=== PATIENT | male | born 1965 | race Caucasian/White ===

== ENCOUNTER 2017-09-23 04:59 | Inpatient (IN) | payer OTHER ==
[~2017-09-23] VITALS: Ht 175.3 cm; Wt 92.6 kg
[2017-09-23] VITALS (16 sets, daily range): BP systolic 122–156; BP diastolic 70–92
--- NOTE | ~2017-09-23 | EKG ---
[address] [address] ELECTROCARDIOGRAM REPORT Name: EDGARD KHAN Room #: 215- ADM IN M.R.#: [id number] Admission: 09/23/17 Attend Phys: Uvaldo Auguste Discharge: Date of : 61 Report #: [id number] THIS REPORT FOR: //name// [facility] Test Date: 2017-09-24 Test Time: 06:12:14 Pat Name: EDGARD KHAN Department: Room: 215 P Gender: M Systems Specialist: MICHAEL : 1965 Requested By: Uvaldo Auguste Order Number: [id number] MD: Darío Vázquez Measurements Intervals [place] Rate: 73 P: 78 OR: 170 QRS: 33 QRSD: 122 T: -60 QT: 451 QTc: 497 Interpretive Statements Sinus rhythm Inferior infarct, recent Compared to ECG 09/23/2017 05:01:[address] elevation is less prominent Electronically Signed On 09-24-2017 9:55:26 LICENSED MORTICIAN by Darío Vázquez [email or web address] <ELECTRONICALLY SIGNED> By: Darío Vázquez MD, [facility] 09/24/1755 1 1 Darío Vázquez MD, [facility] /EPI
--- NOTE | ~2017-09-23 | EKG ---
[address] [address] ELECTROCARDIOGRAM REPORT Name: EDGARD KHAN Room #: 215-P ADM IN M.R.#: [id number] Admission: 09/23/17 Attend Phys: Uvaldo Auguste Discharge: Date of : 61 Report #: [id number] THIS REPORT FOR: //name// [facility] ED Test Date: 2017-09-23 Test Time: 05:01:23 Pat Name: EDGARD KHAN Department: Room: [facility] Gender: M Jboss Developer: 99 : 1965 Requested By: Jenaro Correia Order Number: [id number] MD: Darío Vázquez Measurements Intervals [place] Rate: 77 P: 78 PA: 167 QRS: 88 QRSD: 100 T: 97 QT: 381 QTc: 432 Interpretive Statements Sinus rhythm Probable left atrial enlargement Inferior infarct, acute (RCA) No previous ECG available for comparison Electronically Signed On 09-23-2017 8:14:45 BOILER CONTROL ROOM OPERATOR by Darío Vázquez [email or web address] <ELECTRONICALLY SIGNED> By: Darío Vázquez MD, [facility] 09/23/17 0814 501 0 Darío Vázquez MD, [facility] /EPI
--- NOTE | ~2017-09-23 | 2DMMODE ---
[facility] [address] [facility] [place] [address] 2 D/M-MODE ECHOCARDIOGRAM Name: EDGARD KHAN Room #: 215-P ADM IN M.R.#: [id number] Admission: 09/23/17 Attend Phys: Uvaldo Tee Discharge: Date of : 61 Date of Service: 09/23/17 1033 Report #: [id number] THIS REPORT FOR: //name// APPROVED REPORT Study performed: 09/23/2017 09:28:25 EXAM: Comprehensive 2D, Doppler, and color-flow Echocardiogram Patient Location: Bedside Room #: 215 Status: routine BSA: 2.08 HR: 75 bpm BP: 150/78 mmHg Other Information Study Quality: Adequate Indications CAD Chest Pain Hypertension/HDD STEMI 2D Dimensions RVDd: 32.41 mm LVEF(%): 53.32 (>50%) IVSd: 10.90 (7-11mm) LVOT Diam: 21.69 (18-24mm) LVDd: 55.67 mm PWd: 11.16 (7-11mm) Ascending Ao: 28.16 (22-36mm) LVDs: 40.18 (25-40mm) Aortic Root: 29.14 mm IVC: 16.00 mm Dhillon's LVEF: 53.32 % Volumes Left Atrial Volume (Systole) Single Plane 4CH: 29.07 mL Single Plane 2CH: 55.12 mL LA ESV Index: 22.00 mL/m2 Aortic Valve AoV Peak Chon.: 1.30 m/s AO Peak Gr.: 6.77 mmHg LVOT Max P.19 mmHg LVOT Max V: 1.02 m/s JUDY Vmax: 2.90 cm2 Mitral Valve [facility] [place] [address] [place] [address] 2 D/M-MODE ECHOCARDIOGRAM Name: JUANBECKEDGARD KUO Melissa Room #: 215-P [facility] IN ..#: [id number] Admission: 09/23/17 Attend Phys: Uvaldo Tee Discharge: Date of : 61 Date of Service: 09/23/17 1033 Report #: [id number] E/A Ratio: 0.8 MV Decel. Time: 174.33 ms MV E Max Chon.: 0.70 m/s MV A Chon.: 0.90 m/s MV PHT: 50.56 ms IVRT: 138.41 ms Pulmonary Valve PV Peak Chon.: 0.71 m/s PV Peak Gr.: 1.99 mmHg Pulmonary Vein P Vein S: 0.37 m/s P Vein A: 0.26 m/s P Vein D: 0.25 m/s P Vein A Dur.: 115.3 msec P Vein S/D Ratio: 1.48 Left Ventricle The left ventricle is normal size. There is mild hypokinesis in the basal inferior wall. There is normal left ventricular wall thickness. The left ventricular systolic function is normal. The left ventricular ejection fraction is within the normal range. LVEF is 50-55%. Grade I - abnormal relaxation pattern. Right Ventricle The right ventricle is normal size. The right ventricular systolic function is normal. Atria The left atrium size is normal. The right atrium size is normal. Aortic Valve The aortic valve is normal in structure. No aortic regurgitation is present. There is no aortic valvular stenosis. Mitral Valve The mitral valve is normal in structure. Trace to mild mitral regurgitation. No evidence of mitral valve stenosis. Tricuspid Valve The tricuspid valve is normal in structure. There is no tricuspid valve regurgitation noted. Pulmonic Valve The pulmonary valve is normal in structure. There is no pulmonic valvular regurgitation. [address] [address] 2 D/M-MODE ECHOCARDIOGRAM Name: EDGARD KHAN Room #: 215-P [facility] IN [facility]#: [id number] Admission: 09/23/17 Attend Phys: Uvaldo Tee Discharge: Date of : 61 Date of Service: 09/23/17 1033 Report #: [id number] Great Vessels The aortic root is normal in size. IVC is normal in size and collapses >50% with inspiration. Pericardium There is no pericardial effusion. <Conclusion> The left ventricle is normal size. LVEF is 50-55%. There is mild hypokinesis in the basal inferior wall. The right ventricle is normal size. The right ventricular systolic function is normal. The aortic valve is normal in structure. The mitral valve is normal in structure. Trace to mild mitral regurgitation. The tricuspid valve is normal in structure. The pulmonary valve is normal in structure. There is no pericardial effusion. <ELECTRONICALLY SIGNED> By: Uvaldo Auguste MD 09/23/17 1033 1033 1033 Uvaldo Auguste MD /INF
--- NOTE | ~2017-09-23 | CATHLAB ---
[facility] [place] [address] INVASIVE PROCEDURE REPORT Name: ERINEDGARD Melissa Room #: 215-P ADM IN .R.#: [id number] Admission: 09/23/17 Attend Phys: Uvaldo Tee Discharge: Date of : 61 Date of Service: 09/23/17 1552 Report #: [id number] THIS REPORT FOR: //name// ADDENDUM APPROVED REPORT Patient Details Patient Status: ED Room #: The patient is a 52 year-old male Event Personnel Uvaldo Auguste Magisterial District Judge, Rochelle Garvey RTR Monitor, Hannah Henning CVT ScrubAlejandro Ariel RN advertisement distributor Performed Selective left and right coronary angiography, CECILIO Place w/wo Plasty Single RCA [id number] Indication Procedure Narrative The Right Groin^ was infiltrated with 1% Lidocaine subcutaneous anesthesia. A PINNACLE 6FR Sheath #[id number] sheath was inserted into the RFA^. Coronary angiography was performed using coronary diagnostic catheters. The right coronary system was accessed and visualized with a JR4 GUIDE catheter. The left coronary system was accessed and visualized with a JL4 catheter. Left ventricular/Aortic Valve gradient assessed via catheter pullback. The patient tolerated the procedure well and there were no complications associated with the procedure. Fluoro Time: 13.20 minutes Dose: 1280 mGy Contrast Type and Amount: Omnipaque 150 ml Coronary Angiography The patient's coronary anatomy is right dominant. Diagnostic Cath Left Main Normal origin moderate caliber bifurcates left anterior descending left circumflex free of high-grade disease LAD Small to moderate caliber type II vessel which tapers rapidly towards the apex terminating as a string size vessel. Luminal irregularities to mild irregularities are noted throughout its course [facility] [address] [place] [address] INVASIVE PROCEDURE REPORT Name: ERINEDGARD Melissa Room #: 215-P [facility] IN ..#: [id number] Admission: 09/23/17 Attend Phys: Uvaldo Tee Discharge: Date of : 61 Date of Service: 09/23/17 1552 Report #: [id number] without high grade flow limiting lesions. Diagonal 1 Small-caliber vessel without obstructive lesions present Circumflex Small-caliber vessel which has a proximal first marginal branch with a 50% proximal lesion. Does not appear to be flow-limiting. The vessel then continues on giving rise to numerous smaller caliber lateral and posterior lateral wall marginal branches with luminal irregularities OM1 Small-caliber vessel which has a focal area of narrowing which appears to be between 30 and 50% eccentric Ildefonso. Flow is not impaired through this region OM2 Small-caliber vessels with luminal irregularities noted OM3 Small-caliber vessel with luminal irregularity noted Right Coronary Small to moderate caliber vessel of normal origin which proceeds in the AV groove and is completely occluded at the acute margin. Distal circulation is seen via left to right collateral with a small caliber infero-posterior wall branches IVUS Findings Sprjasson OTW 2.5 x 25 #[id number] Hemodynamics The aortic pressure is 155/93 mmHg with a mean of 120 mmHg. PCI Technique A 0 .014 wire was then advanced into the distal right coronary artery and a 2.0 mm balloon was then utilized with numerous sequential inflations. He balloon was then exchanged for a 2.5 mm 30 mm balloon which was sequentially inflated throughout the proximal and proximal mid RCA. Subsequent to this a 2.5 mm x 30 mm CECILIO Medtronic stent was then positioned and inflow inflated to 9 maile. Then he balloon was then removed and a second 2.5 mm CECILIO Medtronic stent was then positioned proximal to that and deployed at 9 maile. Utilizing that second balloon which was taken distally the previously stented and the most recently stented stents were dilated to 12 maile without issues. Reperfusion was established with balloon dilatation and stenting. His remained electrically and hemodynamically stable throughout the entire procedure. Post stenting angiography demonstrated a small caliber posterior descending artery has a moderate proximal lesion. The distal circulation was swelling caliber with luminal irregularities but no high-grade lesions noted. The RCA proper had excellent flow along his tortuosity with apparently fully deployed stents. KATELYN flow of 3 was noted. [facility] [address] [place] [address] INVASIVE PROCEDURE REPORT Name: EDGARD KHAN Room #: 215-P [facility] IN ..#: [id number] Admission: 09/23/17 Attend Phys: Uvaldo Tee Discharge: Date of : 61 Date of Service: 09/23/17 1552 Report #: [id number] PCI Technique Lesion Percutaneous coronary intervention was performed on the mid right coronary artery. A LAUNCHER 6FR FR 4 #[id number] Guide Catheter was used to engage the RCA ostium. A Luge Wire .014 x 182CM #[id number] Interventional Guidewire was used to cross the lesion. BALLOON DILATION A Balloon catheter Sprinter OTW 2.0 x 15 #[id number] was inserted and inflated up to 10.00atm for 28seconds. Additional Inflation: 12.00atm for 12seconds. Additional Inflation: 12.00atm for 23seconds. BALLOON DILATION A Balloon catheter Sprinter OTW 2.5 x 25 #[id number] was inserted and inflated up to 9.00atm for 11seconds. Additional Inflation: 8.00atm for 65seconds. STENT DEPLOYMENT A drug-eluting stent RESOLUTE OTW 2.5 X 30 #[id number] was inserted and inflated up to 9.00atm for 17seconds. Additional Inflation: 8.00atm for 45seconds. Additional Inflation: 8.00atm for 38seconds. Stent Deployment A drug-eluting stent RESOLUTE OTW 2.5 X 26 #[id number] was inserted and inflated up to 12atm for 9seconds. Conclusion 1. Coronary artery disease severe single-vessel involving the right coronary artery with diminutive left coronary circulation 2. Successful percutaneous revascularization of a totally occluded right coronary artery with a 2.5 mm Medtronic CECILIO stent taken to 12 maile. A total of 45 mm of stent was deployed in the proximal and proximal mid RCA Recommendations Daily ASA with Plavix for at least one year Cardiac Risk Reduction Program Aggressive Medical Therapy Medications Administered Prasugrel <ELECTRONICALLY SIGNED> By: Uvaldo Auguste MD 09/23/17 155 51 51 Uvaldo Auguste MD /INF
[2017-09-23 05:16] LABS: HEMATOCRIT 49.6 % (42.0-52.0); HEMOGLOBIN 17.1 gm/dL (14.0-18.0); MCH 31.7 pg (26.0-34.0); MCHC 34.4 g/dL (28.0-37.0); RBC 5.39 mil/uL (4.50-6.00); RDW 14.8 % (10.5-14.5); WBC 11.7 thou/uL (4.0-11.0)
[2017-09-23] MEDS ORDERED: LISINOPRIL20 MG PO (05:20)
[2017-09-23] MEDS ORDERED: ALLOPURINOL 10100 M1 PO (05:20)
[2017-09-23] MEDS ORDERED: ATORVASTATIN CA40 MG PO (05:20)
[2017-09-23] MEDS ORDERED: ASPIR 8181 MG PO (05:21)
[2017-09-23 05:25] LABS: ANION GAP 14 mmol/L (7-16); BUN 17 mg/dL (7-18); CALCIUM 9.9 mg/dL (8.5-10.1); CHLORIDE 103 mmol/L (98-107); CO2 25 mmol/L (21-32); GLUCOSE 128 mg/dL (74-106); SODIUM 142 mmol/L (136-145)
[2017-09-23 05:34] LABS: TROPONIN-I < 0.04 ng/mL (<0.06)
[2017-09-24] VITALS: BP 120/77
[2017-09-24 00:05] VITALS: BP 120/77
[2017-09-24 03:30] VITALS: BP 110/75
[2017-09-24 03:49] LABS: HEMATOCRIT 42.6 % (42.0-52.0); HEMOGLOBIN 14.4 gm/dL (14.0-18.0); MCH 31.3 pg (26.0-34.0); MCHC 33.7 g/dL (28.0-37.0); MCV 92.7 fL (80.0-100.0); RBC 4.59 mil/uL (4.50-6.00); RDW 14.8 % (10.5-14.5); WBC 6.8 thou/uL (4.0-11.0)
[2017-09-24 04:00] LABS: CALCIUM 8.3 mg/dL (8.5-10.1); CREATININE 0.9 mg/dL (0.7-1.3); POTASSIUM 3.9 mmol/L (3.5-5.1)
[2017-09-24 07:30] VITALS: BP 131/79
[2017-09-24] MEDS ORDERED: TOPROL XL25 MG PO (10:37)
[2017-09-24] MEDS ORDERED: NITROGLYCERIN0.4 MG SUBLING (10:38)
[2017-09-24] MEDS ORDERED: BRILINTA90 MG PO (10:38)
[2017-09-24 11:15] VITALS: BP 121/79
== END 2017-09-24 12:00 | disposition home or self-care (01) | DRG 247 ==
LOC: ER 04:59 → CATH 04:59 → EROBS 05:46 → 2N 05:46 → ENTRNSPT 09-24 11:43 → EDTRNSPTSTS 09-24 11:46 → 2N 09-24 12:00
PROVIDERS: Emergency Medicine; Internal Medicine
DX: I21.19 ST elevation (STEMI) myocardial infarction involving other coronary artery of inferior wall (principal); I10 Essential (primary) hypertension; E78.00 Pure hypercholesterolemia, unspecified; M19.90 Unspecified osteoarthritis, unspecified site; M10.9 Gout, unspecified; Z79.82 Long term (current) use of aspirin; Z79.899 Other long term (current) drug therapy; Z82.49 Family history of ischemic heart disease and other diseases of the circulatory system
CPT/HCPCS: 10081

== ENCOUNTER 2019-12-27 12:22 | Emergency (ER) | payer BC, OTHER ==
[~2019-12-27] VITALS: Ht 175.3 cm; Wt 90.7 kg
[~2019-12-27 12:22] MED LIST: ALLOPURINOL 10100 M1 PO; ASPIR 8181 MG PO; ATORVASTATIN CA40 MG PO; BRILINTA90 MG PO; LISINOPRIL20 MG PO; NITROGLYCERIN0.4 MG SUBLING; TOPROL XL25 MG PO
[2019-12-27 13:07] LABS: ABSOLUTE NEUTROPHILS 5.6 thou/uL (1.4-8.2); BASOPHILS 0.7 % (0.0-2.0); EOSINOPHILS 0.2 % (0.0-3.0); HEMATOCRIT 47.2 % (42.0-52.0); HEMOGLOBIN 15.9 gm/dL (14.0-18.0); LYMPHOCYTES 7.6 % (24.0-44.0); MCH 31.4 pg (26.0-34.0); MCHC 33.7 g/dL (28.0-37.0); MCV 93.1 fL (80.0-100.0); MONOCYTES 11.2 % (1.0-8.0); PLATELET COUNT 184 thou/uL (150-400); POLYS 80.3 % (36.0-66.0); RBC 5.07 mil/uL (4.50-6.00); RDW 13.8 % (10.5-14.5)
[2019-12-27 13:10] LABS: APTT 25.7 Seconds (24.5-32.8); INR 1.1; PROTIME 11.4 Seconds (9.3-11.4)
[2019-12-27 13:13] LABS: ANION GAP 11 mmol/L (7-16); BUN 11 mg/dL (7-18); CALCIUM 9.5 mg/dL (8.5-10.1); CHLORIDE 99 mmol/L (98-107); CO2 23 mmol/L (21-32); CREATININE 0.9 mg/dL (0.7-1.3); GLUCOSE 101 mg/dL (74-106); POTASSIUM 3.6 mmol/L (3.5-5.1); SODIUM 133 mmol/L (136-145)
[2019-12-27 13:22] LABS: URINE BILIRUBIN NEGATIVE (Negative); URINE BLOOD 1+ (Negative); URINE CLARITY CLEAR; URINE COLOR YELLOW; URINE GLUCOSE-RANDOM* NEGATIVE (Negative); URINE KETONES 3+ (Negative); URINE LEUKOCYTES-REFLEX NEGATIVE (Negative); URINE NITRITE-REFLEX NEGATIVE (Negative); URINE PROTEIN (DIPSTICK) NEGATIVE (Negative); URINE SPECIFIC GRAVITY 1.015 (1.005-1.035); URINE UROBILINOGEN 0.2 E.U./dl (0.2-1.0)
[2019-12-27 13:23] LABS: ALBUMIN 4.6 g/dL (3.4-5.0); MAGNESIUM 2.2 mg/dL (1.8-2.4); SGOT 25 U/L (15-37); SGPT 33 U/L (30-65); TOTAL BILIRUBIN 1.3 mg/dL (<0.1-1.0); TROPONIN-I <0.06 ng/mL (<0.06)
[2019-12-27 13:35] LABS: BACTERIA-REFLEX 1-9 Few /HPF (None Seen); CASTS None Seen /LPF (None Seen); CRYSTALS None Seen /LPF (None Seen); SQUAMOUS None Seen /LPF (0-3); URINE RBC 0-2 Rare /HPF (0-2); URINE WBC-REFLEX None Seen /HPF (0-5)
[2019-12-27] MEDS ORDERED: VENTOLIN HFA 1818 GM INH (13:53)
[2019-12-27 14:41] VITALS: BP 110/69
--- NOTE | 2019-12-27 15:54 | EKG ---
[facility] [place] [address] ELECTROCARDIOGRAM REPORT Name: EDGARD KHAN Room #: DEP [facility]#: [id number] Admission: 12/27/19 Attend Phys: Discharge: 12/27/19 Date of : 61 Report #: [id number] THIS REPORT FOR: cc: Jere Root MD, Rene P. MD Lundgren, Craig H. MD [facility] ~ THIS REPORT FOR: //name// [facility] ED Test Date: 2019-12-27 Test Time: 12:54:27 Pat Name: EDGARD KHAN Department: Room: Gender: Sweatband Drummer: YAMILET : 1965 Requested By: German Lantigua Order Number: [id number] MD: Darío Vázquez Measurements Intervals [place] Rate: 88 P: 35 TN: 173 QRS: 69 QRSD: 104 T: 35 QT: 360 QTc: 436 Interpretive Statements Sinus rhythm Small inferior Q waves Compared to ECG 09/24/2017 06:12:14 Inferior T wave abnormality is less pronounced Electronically Signed On 12-27-2019 15:53:36 CDT by Darío Vázquez [email or web address] <ELECTRONICALLY SIGNED> By: Darío Vázquez MD, [facility] 12/27/19 1553 1254 1254 Darío Vázquez MD, [facility] /EPI
== END 2019-12-27 14:41 | disposition home or self-care (01) ==
LOC: ER 12:22
PROVIDERS: Emergency Medicine
DX: J06.9 Acute upper respiratory infection, unspecified (principal); E78.00 Pure hypercholesterolemia, unspecified; I10 Essential (primary) hypertension; M10.9 Gout, unspecified; M19.90 Unspecified osteoarthritis, unspecified site; Z79.899 Other long term (current) drug therapy; Z79.82 Long term (current) use of aspirin

== ENCOUNTER 2020-04-08 19:43 | Emergency (ER) | payer OTHER ==
[~2020-04-08] VITALS: Ht 175.3 cm; Wt 90.7 kg
[~2020-04-08 19:43] MED LIST changes: +VENTOLIN HFA 1818 GM INH
[2020-04-08 20:09] LABS: ABSOLUTE NEUTROPHILS 3.9 thou/uL (1.4-8.2); BASOPHILS 0.8 % (0.0-2.0); HEMATOCRIT 45.5 % (42.0-52.0); HEMOGLOBIN 15.6 gm/dL (14.0-18.0); LYMPHOCYTES 26.8 % (24.0-44.0); MCH 32.1 pg (26.0-34.0); MCHC 34.3 g/dL (28.0-37.0); MCV 93.4 fL (80.0-100.0); MONOCYTES 8.7 % (1.0-8.0); PLATELET COUNT 235 thou/uL (150-400); POLYS 61.7 % (36.0-66.0); RBC 4.87 mil/uL (4.50-6.00); RDW 13.5 % (10.5-14.5); WBC 6.4 thou/uL (4.0-11.0)
[2020-04-08 20:16] LABS: ANION GAP 15 mmol/L (7-16); BUN 19 mg/dL (7-18); CALCIUM 9.1 mg/dL (8.5-10.1); CHLORIDE 102 mmol/L (98-107); CO2 22 mmol/L (21-32); CREATININE 1.2 mg/dL (0.7-1.3); GLUCOSE 111 mg/dL (74-106); POTASSIUM 3.6 mmol/L (3.5-5.1); SODIUM 139 mmol/L (136-145)
[2020-04-08 20:25] LABS: TROPONIN-I <0.06 ng/mL (<0.06)
[2020-04-08] MEDS ORDERED: VALIUM5 MG PO (21:43)
[2020-04-08 21:49] VITALS: BP 113/70
--- NOTE | 2020-04-09 10:01 | EKG ---
[facility] [place] [address] ELECTROCARDIOGRAM REPORT Name: EDGARD KHAN Room #: DEP [facility]#: [id number] Admission: 04/08/20 Attend Phys: Discharge: 04/08/20 Date of : 61 Report #: [id number] THIS REPORT FOR: cc: Jere Root MD, Rene P. MD Lundgren, Craig H. MD [facility] THIS REPORT FOR: //name// [facility] ED Test Date: 2020-04-08 Test Time: 19:42:40 Pat Name: EDGARD KHAN Department: Room: Gender: Cloud Solutions Architect: [facility] : 1965 Requested By: Jesus Khanna Order Number: [id number] MD: Darío Vázquez Measurements Intervals [place] Rate: 86 P: 73 [place]: 159 QRS: 76 QRSD: 94 T: 58 QT: 401 QTc: 480 Interpretive Statements Sinus rhythm Borderline prolonged QT interval Compared to ECG 12/27/2019 12:54:27 No significant change was found Electronically Signed On 04-09-2020 10:00:44 CDT by Darío Vázquez [email or web address] <ELECTRONICALLY SIGNED> By: Darío Vázquez MD, [facility] 04/09/20 1000 41 41 Darío Vázquez MD, [facility] /EPI
== END 2020-04-08 21:50 | disposition home or self-care (01) ==
LOC: ER 19:43
PROVIDERS: Emergency Medicine
DX: R07.89 Other chest pain (principal); R42 Dizziness and giddiness; R11.0 Nausea; I25.2 Old myocardial infarction; E78.00 Pure hypercholesterolemia, unspecified; M19.90 Unspecified osteoarthritis, unspecified site; I10 Essential (primary) hypertension; Z79.899 Other long term (current) drug therapy; Z79.82 Long term (current) use of aspirin

== ENCOUNTER → 2020-11-16 | Outpatient (CLI) | payer OTHER ==
[~2020-11-16] MED LIST changes: +VALIUM5 MG PO
== END ==
LOC: SJCVCIMAG 08:31
PROVIDERS: ATTEND Internal Medicine
DX: R07.9 Chest pain, unspecified (principal); I25.10 Atherosclerotic heart disease of native coronary artery without angina pectoris; I25.2 Old myocardial infarction; Z95.5 Presence of coronary angioplasty implant and graft